=== PATIENT | male | born 1965 | race Caucasian/White ===

== ENCOUNTER 2018-07-25 06:44 | Inpatient (IN) ==
[2018-07-25] MEDS ORDERED: Dexamethasone 4 MG/ML VIAL ONE (07:01)
[2018-07-25] MEDS ORDERED: Lidocaine -MPF 4% 5 ML AMPUL ONE (07:01)
[2018-07-25] MEDS ORDERED: *HR* Midazolam HCl 2 MG/2 ML VIAL ONE (07:01)
[2018-07-25] MEDS ORDERED: *HR* FentaNYL (PF) 100 MCG/2 ML VIAL ONE (07:01)
[2018-07-25] MEDS ORDERED: *HR* Succinylcholine 200 MG/10 ML VIAL IVP ONE (07:01)
[2018-07-25] MEDS ORDERED: *HR* Propofol 200 MG/20 ML VIAL IVP ONE (07:01)
[2018-07-25] MEDS ORDERED: Lidocaine -MPF 2% 2 ML VIAL ONE (07:01)
[2018-07-25] MEDS ORDERED: Ondansetron 4 MG/2 ML VIAL ONE (07:01)
[2018-07-25] MEDS ORDERED: Famotidine 20 MG/2 ML VIAL IVP ONE (07:12)
[2018-07-25] MEDS ORDERED: KETAMINE HCL 50 MG/ML SYRINGE IV ONE (07:12)
[2018-07-25] MEDS ORDERED: Pregabalin 75 MG CAPSULE PO ONE (07:12)
[2018-07-25] MEDS ORDERED: *HR* Methadone 10 MG TABLET PO ONE (07:13)
[2018-07-25] MEDS ORDERED: Acetaminophen IV 1,000 MG/100 ML INFUS..BTL IVPB ONE (07:13)
[2018-07-25] MEDS ORDERED: Ringers Solution, Lactated 1,000 ML IVC SCH ×3 (07:15→14:45)
--- NOTE | 2018-07-25 07:16 | Anesthesia Evaluation PreOp ---
Date of Encounter: 07/25/18 Time of Encounter: 07:10 - Past History Planned Operation: PLIF L5-S1 Cardiac History: HTN Pulmonary History: Smoker INFORMATION ARCHITECT History: CVA (Hemorrhagic Stroke Embolization at [facility], residual deficit), Other (Previous Cervical Fracture) Other Medical History: Denies Any Significant HX Anesthesia History: No Prior Anesthetic Complications Alcohol Use: occasionally Drug use: none Medications and Allergies Cyclobenzaprine [Flexeril] 10 mg PO 05/15/17 [History] Escitalopram [Lexapro] 10 mg PO DAILY 05/15/17 [History] Gabapentin [Neurontin] 600 mg PO 05/15/17 [History] HYDROcodone/Acet 7.5/325 mg [[place] 7.5-325 mg] 1 tab PO 05/15/17 [History] Lisinopril [Zestril] 10 mg PO DAILY 05/15/17 [History] SUMAtriptan succinate [Imitrex] 50 mg PO 05/15/17 [History] Allergy/AdvReac Type Severity Reaction Status Date / Time No Known Allergies Allergy Unverified 10/06/16 12:09 - Meds/Allergy Pre-op Review Medications Reviewed: Yes Allergies Reviewed: Yes Beta Blockers on Current Med List: No Anesthesia Results - Labs Laboratory Tests 07/03/18 07/03/18 07/03/18 15:40 15:40 15:40 Hgb 14.4 Hct 43.9 Plt Count 261 PT 9.8 INR 0.9 APTT 28.2 Sodium 139 Potassium 3.9 BUN 8 Creatinine 0.76 - Imaging EKG: report reviewed (SR) Additional studies: ECHO 2016 EF 55%, Stress Test Negative Anesthesia Exam O2 Sat Height 1.7 m Height 1.7 m Weight 75.75 kg Weight 75.75 kg O2 Sat by Pulse Oximetry 95 Vital Signs Temp Pulse Resp BP Pulse Ox 98.5 F 93 18 136/91 95 07/25/18 07:13 07/25/18 07:13 07/25/18 07:13 07/25/18 07:13 07/25/18 07:13 Height: 5'7 Weight: 167 lbs NPO (# of Hours): MN Pain Scale: 0 - HEENT Pupil (Motor): Pupils equal, EOMI Mallampati: III Teeth: Normal Oral Opening: Less than or equal to 3 (limited neck extension) - INFORMATION ARCHITECT LOC: Oriented INFORMATION ARCHITECT Motor: Normal RUE, Normal LUE, Normal RLE, Normal LLE, Normal Face INFORMATION ARCHITECT Sensory: Normal: RUE, LUE, RLE, LLE, Face - Cardiac Rhythm: Regular Murmur: None JVD: No Carotid Bruit: No - Pulmonary Breath Sounds: bilateral Clear Respiratory Effort: Symmetrical Anesthesia Assess/Plan ASA Score: 2 Level of consciousness: Cooperative, Oriented Anesthetic Plan: General Reason for No Neuroaxial/Regional Block: Other (not indicated) Autologous Blood: No Monitoring Plan: Standard Monitors Recovery Plan: PACU (Discussed GA, agrees to proceed)
[2018-07-25] MEDS ORDERED: Albuterol 2.5 MG/3 ML NEBULIZER IH ONE (07:33)
[2018-07-25] MEDS ORDERED: CeFAZolin Syr 2,000MG/20 ML 2,000 MG/20 ML SYRINGE IVPB ONE (07:33)
[2018-07-25] MEDS ORDERED: *HR* Norepinephrine 4 MG/4 ML VIAL IVC ONE (07:37)
[2018-07-25] MEDS ORDERED: *HR* HYDROMORPHONE 2 MG/ML VIAL ONE (07:42)
--- NOTE | 2018-07-25 07:42 | History & Physical Report ---
Date of Encounter: 07/25/18 Time of Encounter: 07:35 24 Hour HP Update - Instructions Instructions: If the History and Physical is less than 30 days old and was completed prior to A.M. admission and or procedure and has NOT been updated on calendar day of procedure please complete this update prior to performing procedure. - Update Patient reports changes in Medical Condition: No Changes in examination, assessment, or condition: No Changes in Medication: No Preop tests/diagnostics Reviewed: Yes Pre-Op MRSA Screen: Negative Surgery Remains Indicated: Yes Consent for Planned Operative Procedure(s) Verified: Yes - Pre-Operative Checklist Preoperative Checklist Indicated: No Prophylactic Antibiotic Ordered: Yes Home Medications Include Beta Imer: No Beta Imer Taken Today (Day of Surgery): No Beta Imer Taken Yesterday (Day Prior to Surgery): No Is VTE Prophylaxis Indicated?: Yes
[2018-07-25] MEDS ORDERED: Bacitracin 50,000 UNIT, Polymyxin B Sulfate 500,000 UNIT, Sodium Chloride IRRigation 1,... IR ONE (08:00)
[2018-07-25] MEDS ORDERED: *HR* Magnesium Sulfate 1 GM/2 ML VIAL ONE (08:18)
[2018-07-25] MEDS ORDERED: *HR* Rocuronium Bromide 50 MG/5 ML VIAL ONE (08:59)
[2018-07-25] MEDS ORDERED: *HR* PHENYLEPHRINE 1,000 MCG/10 ML SYRINGE IVP ONE (09:05)
[2018-07-25] MEDS ORDERED: Neostigmine Methylsulfate 3 MG/3 ML SYRINGE ONE (09:59)
[2018-07-25] MEDS ORDERED: Ondansetron 4 MG/2 ML VIAL IVP ONE (10:40)
[2018-07-25] MEDS ORDERED: *HR* Labetalol 20 MG/4 ML SYRINGE IVP PRN (10:40)
[2018-07-25] MEDS ORDERED: *HR* Promethazine 25 MG/ML VIAL IVP PRN (10:40)
--- NOTE | 2018-07-25 10:45 | Orthopedic Operative Note ---
Date of procedure: 07/25/18 Pre-op diagnosis: Spondylolisthesis, lumbar stenosis, lumbar radiculopathy Post-op diagnosis: same Operation/Findings: Posterior lumbar interbody fusion L5-S1: The patient successfully underwent general endotracheal anesthesia. The patient was given antibiotics prior to the start of the procedure. Compression boots and stockings were used for deep vein thrombosis prophylaxis. A Arzola catheter was placed. Leads for neuro monitoring were placed on the upper and lower extremities. This included the cranium. The neuro monitoring personnel confirmed there were satisfactory readings prior to the start of the procedure. The patient was turned prone on the Bro table. The back was prepped and draped in the usual sterile fashion. An incision was was marked and centered over the involved L5-S1 levels in the mid line. The incision was deepened through the lumbar fascia. Bovie cautery and Art elevators were used to reflect the paraspinal musculature at the lateral extent of the transverse processes of the involved L5 and S1 levels. Emy clamps were placed over the spinous L5 and S1 processes. An intraoperative lateral fluoroscopy graft was obtained. A conversation was held between the surgeon and radiologist and both confirmed we had the correct operative levels. We then placed pedicle screws in standard fashion with the aid of fluoroscopy and anatomic landmarks. Briefly a starter awl was used. A gearshift was subsequently used to enter the ship pilot hole via a transpedicular route into the vertebral body. The ship pilot hole was tapped with an undersized instrument, and subsequently four 6.5 x 50 mm pedicle screws were placed bilaterally at the indicated L5 and S1 levels. The screws were tested with the aid of the neurologic monitoring staff via pedicle screw stimulation. All reading suggested there was no significant cortical wall breech. The screws were also evaluated fluoro- graphically and appeared to be in satisfactory position. We then turned our attention to the decompression portion of the procedure. We removed the supraspinous and interspinous ligaments and subsequently the insertion of the ligamentum flavum on the undersurface of the proximal L5 lamina was dislodged with a curette. We then removed the ligamentum flavum as well as undercut the L5-S1 facets at this level to decompress the lateral recesses. We also performed a L5 laminectomy. After the decompression, which was over and above that which was required to place the interbody graft, the foramen and traversing roots at this L5-S1 level were found to be free and patent. We also took part of the medial facets at L5-S1 in order to aid in the decompression. We then protected the neural elements including the thecal sac and traversing nerve root on the right with a dural retractor. We made an annulotomy into the L5-S1 disc space and then removed entire disc material using Pituitary instruments. We trialed various size grafts after the endplates were prepared for graft insertion. An 8 x 26 enter body graft fit well within the L5-S1 disc space. We obtained some bone from the right posterior superior iliac spine through us a separate incision and combined with this with the bone which we had saved from the laminectomy portion of the procedure. This autograft bone was first placed in the anterior portion of the L5-S1 disc space and additional bone was placed within the interbody graft spacer. We then placed the interbody graft spacer obliquely across the L5-S1 disc space towards the midline while protecting the neural elements with a root retractor. When the graft was found to be in satisfactory position the paper inserter was removed. We then copiously irrigated the wound. We then decorticated the L5 transverse processes as well as the L5-S1 facet joints and proximal portion of the sacrum of the involved levels to aid in the posterolateral fusion. We placed autograft bone in the lateral gutters over these regions. We then placed rods within the screw heads of the involved L5-S1 levels and first locked the distal screws and then subsequently locked the proximal screws so as to improve and reduce the spondylolisthesis previously seen. We then closed the wound in layers with 1 Vicryl for the fascia, 2-0 Vicryl. Subcutaneous tissue, and Dermabond was used for skin closure. Sterile dressings were placed over the wound. The patient was turned supine on a hospital bed and extubated. All sponge instruments and needle counts were correct at the end of the procedure. The patient tolerated the procedure well without complications. Anesthesia: GETA Surgeon: Alexander Macedo Jr Was there an help desk assistant present: No Estimated blood loss (cc): 100 Specimen: None Condition: stable Disposition: PACU
[2018-07-25] MEDS: *HR* HYDROmorphone (PF) 1 MG/ML SYRINGE IVP PRN ×2 (11:24→11:30)
[2018-07-25] MEDS ORDERED: Ondansetron 4 MG/2 ML VIAL IVP PRN (14:34)
[2018-07-25] MEDS ORDERED: Naloxone 0.4 MG/ML INJ IVP PRN (14:34)
[2018-07-25] MEDS ORDERED: Acetaminophen 325 MG TABLET PO PRN (14:34)
[2018-07-25] MEDS: *HR* OxyCODONE Immed Rel 5 MG TABLET PO PRN ×2 (15:32→20:38)
[2018-07-26] MEDS: *HR* OxyCODONE Immed Rel 5 MG TABLET PO PRN ×4 (04:46→23:44)
[2018-07-26] MEDS: *HR* HYDROcodone/Acet 5/325 mg TABLET PO PRN ×2 (08:19→15:25)
--- NOTE | 2018-07-26 13:04 | Orthopedics Progress Note ---
Date of Encounter: 07/26/18 Time of Encounter: 13:03 - Assessment and Plan (1) Spondylolisthesis Current Visit: Yes Status: Chronic Qualifiers: Spinal region: unspecified Qualified Code(s): M43.10 - Spondylolisthesis, site unspecified (2) Lumbar spinal stenosis Current Visit: Yes Status: Chronic Qualifiers: Neurogenic claudication status: unspecified Qualified Code(s): M48.061 - Spinal stenosis, lumbar region without neurogenic claudication (3) Lumbar radiculopathy Current Visit: Yes Status: Chronic (4) Status post lumbar spinal fusion Current Visit: Yes Status: Acute Subjective Principal diagnosis: s/p PLIF Interval history: Date of procedure: 07/25/18 Pre-op diagnosis: Spondylolisthesis, lumbar stenosis, lumbar radiculopathy Post-op diagnosis: same Operation/Findings: Posterior lumbar interbody fusion L5-S1 patient seen by Dr. Macedo Vital Signs Temp Pulse Resp BP Pulse Ox 07/26/18 11:45 98.0 F 78 15 102/66 98 07/26/18 06:45 98.3 F 86 15 106/68 96 07/26/18 04:50 97.7 F 79 16 136/81 97 07/25/18 23:38 98.4 F 112 17 111/70 95 07/25/18 20:42 98.2 F 106 16 129/86 96 07/25/18 20:20 96 07/25/18 20:14 98.0 F 109 18 126/82 96 07/25/18 16:43 97.9 F 104 17 113/71 94 07/25/18 13:46 106 18 92 07/25/18 13:32 105 16 114/76 92 Intake and Output 07/25/18 07/26/18 07/26/18 23:59 07:59 15:59 Intake Total 220 / 220 1100 / 1100 200 / 200 Output Total 1400 / 1400 1600 / 1600 Balance -1180 / -1180 -500 / -500 200 / 200 Intake: IV Fluids 100 / 100 100 / 100 Ancef 2,000 MG In 0.9 % Sodium 100 / 100 100 / 100 Chloride 100 ML @ 200 mls/hr IVPB Q8HR [facility] Rx#:[id number] Oral 120 / 120 1000 / 1000 200 / 200 Output: Catheter 1400 / 1400 1600 / 1600 Other: Meal Lunch Breakfast Percent of Meal Consumed 100% 50% # Voids 1 Objective Vital signs: Vital Signs Temp Pulse Resp BP Pulse Ox 07/26/18 11:45 98.0 F 78 15 102/66 98 07/26/18 06:45 98.3 F 86 15 106/68 96 07/26/18 04:50 97.7 F 79 16 136/81 97 07/25/18 23:38 98.4 F 112 17 111/70 95 07/25/18 20:42 98.2 F 106 16 129/86 96 07/25/18 20:20 96 07/25/18 20:14 98.0 F 109 18 126/82 96 07/25/18 16:43 97.9 F 104 17 113/71 94 07/25/18 13:46 106 18 92 07/25/18 13:32 105 16 114/76 92 Intake and Output 07/25/18 07/26/18 07/26/18 23:59 07:59 15:59 Intake Total 220 / 220 1100 / 1100 200 / 200 Output Total 1400 / 1400 1600 / 1600 Balance -1180 / -1180 -500 / -500 200 / 200 Intake: IV Fluids 100 / 100 100 / 100 Ancef 2,000 MG In 0.9 % Sodium 100 / 100 100 / 100 Chloride 100 ML @ 200 mls/hr IVPB Q8HR [facility] Rx#:[id number] Oral 120 / 120 1000 / 1000 200 / 200 Output: Catheter 1400 / 1400 1600 / 1600 Other: Meal Lunch Breakfast Percent of Meal Consumed 100% 50% # Voids 1 - Labs CBC & BMP: 07/26/18 15:15 07/26/18 15:15 - VTE Documentation of Mechanical Device: Graduated compression elastic hosiery Consult Discharge Plan - Plan Referrals: Montse Garcia, LATEXER [Primary Care Provider] -
[2018-07-26 15:28] LABS: Basophils # 0.1 K/mcL (0.0-0.2); Basophils % 0.2 %; Hematocrit 41.8 % (37.5-50.1); Hemoglobin 13.5 g/dL (12.9-16.9); Immature Granulocytes % 0.6 % (0-4); Lymphocytes # 1.7 K/mcL (0.6-4.6); Lymphocytes % 7.1 %; Mean Corpuscular HGB Conc 32.3 g/dL (31.6-35.5); Mean Corpuscular Hemoglobin 31.2 pg (28.0-33.3); Mean Corpuscular Volume 96.5 fL (83.0-100.0); Mean Platelet Volume 10.3 fL (9.4-12.4); Monocytes # 2.4 K/mcL (0.0-1.3); Monocytes % 10.1 %; Neutrophils # 19.3 K/mcL (1.6-8.9); Platelet Count 251 K/mcL (140-400); Red Blood Count 4.33 M/mcL (4.19-5.50); Red Cell Distribution Width 13.3 % (11.5-14.5)
[2018-07-26 15:46] LABS: Alanine Aminotransferase 72 Units/L (7-52); Albumin/Globulin Ratio 1.5 (1.1-2.2); Alkaline Phosphatase 78 Units/L (34-104); Aspartate Amino Transferase 67 Units/L (13-39); BUN/Creatinine Ratio 9 (6-26); Bilirubin,Total 0.3 mg/dL (0.3-1.0); Blood Urea Nitrogen 7 mg/dL (6-20); Calcium 9.1 mg/dL (8.6-10.3); Carbon Dioxide 30 mEq/L (23-29); Chloride 103 mEq/L (98-107); Globulin 2.6 g/dL (2.4-3.5); Glucose 102 mg/dL (70-105); Osmolality,Calculated 282 (280-300); Potassium 4.1 mEq/L (3.5-5.1); Sodium 137 mEq/L (136-145); Total Protein 6.6 g/dL (6.4-8.9); eGFR For Non-African Americans > 60 (> 60)
[2018-07-27] MEDS: *HR* OxyCODONE Immed Rel 5 MG TABLET PO PRN ×3 (05:15→14:32)
[2018-07-27 09:43] LABS: Basophils # 0.1 K/mcL (0.0-0.2); Basophils % 0.5 %; Eosinophils # 0.1 K/mcL (0.0-0.6); Eosinophils % 0.7 %; Hemoglobin 12.7 g/dL (12.9-16.9); Immature Granulocytes % 0.3 % (0-4); Lymphocytes # 1.9 K/mcL (0.6-4.6); Lymphocytes % 15.3 %; Mean Corpuscular HGB Conc 32.6 g/dL (31.6-35.5); Mean Corpuscular Hemoglobin 31.1 pg (28.0-33.3); Mean Corpuscular Volume 95.6 fL (83.0-100.0); Monocytes # 1.8 K/mcL (0.0-1.3); Monocytes % 14.2 %; Neutrophils # 8.7 K/mcL (1.6-8.9); Platelet Count 215 K/mcL (140-400); Red Blood Count 4.08 M/mcL (4.19-5.50); Red Cell Distribution Width 13.4 % (11.5-14.5)
[2018-07-27 10:02] LABS: BUN/Creatinine Ratio 6 (6-26); Blood Urea Nitrogen 4 mg/dL (6-20); Calcium 8.8 mg/dL (8.6-10.3); Carbon Dioxide 29 mEq/L (23-29); Chloride 102 mEq/L (98-107); Glucose 127 mg/dL (70-105); Osmolality,Calculated 280 (280-300); Potassium 3.7 mEq/L (3.5-5.1); Sodium 136 mEq/L (136-145); eGFR For Non-African Americans > 60 (> 60)
[2018-07-27] MEDS: *HR* HYDROcodone/Acet 5/325 mg TABLET PO PRN (11:44)
[2018-07-28] MEDS: *HR* HYDROcodone/Acet 5/325 mg TABLET PO PRN (00:56)
[2018-07-28] MEDS: *HR* OxyCODONE Immed Rel 5 MG TABLET PO PRN ×2 (05:48→14:04)
[2018-07-28 10:50] VITALS: BP 122/77
[2018-07-28 12:22] LABS: Basophils # 0.1 K/mcL (0.0-0.2); Basophils % 0.6 %; Eosinophils # 0.2 K/mcL (0.0-0.6); Eosinophils % 2.2 %; Hematocrit 38.5 % (37.5-50.1); Hemoglobin 12.8 g/dL (12.9-16.9); Immature Granulocytes % 0.4 % (0-4); Lymphocytes # 1.8 K/mcL (0.6-4.6); Lymphocytes % 18.1 %; Mean Corpuscular HGB Conc 33.2 g/dL (31.6-35.5); Mean Corpuscular Hemoglobin 31.6 pg (28.0-33.3); Mean Corpuscular Volume 95.1 fL (83.0-100.0); Mean Platelet Volume 10.4 fL (9.4-12.4); Monocytes # 1.6 K/mcL (0.0-1.3); Monocytes % 15.5 %; Neutrophils # 6.3 K/mcL (1.6-8.9); Platelet Count 205 K/mcL (140-400); Red Blood Count 4.05 M/mcL (4.19-5.50); Red Cell Distribution Width 13.1 % (11.5-14.5); Segmented Neutrophils % 63.2 %
[2018-07-28 12:45] LABS: BUN/Creatinine Ratio 7 (6-26); Blood Urea Nitrogen 5 mg/dL (6-20); Calcium 9.1 mg/dL (8.6-10.3); Carbon Dioxide 26 mEq/L (23-29); Chloride 102 mEq/L (98-107); Glucose 120 mg/dL (70-105); Osmolality,Calculated 276 (280-300); Potassium 3.8 mEq/L (3.5-5.1); Sodium 134 mEq/L (136-145); eGFR For Non-African Americans > 60 (> 60)
--- NOTE | 2018-07-28 14:06 | Orthopedics Progress Note ---
Date of Encounter: 07/27/18 Time of Encounter: 09:00 - Assessment and Plan (1) Spondylolisthesis Current Visit: Yes Status: Chronic Qualifiers: Spinal region: unspecified Qualified Code(s): M43.10 - Spondylolisthesis, site unspecified (2) Lumbar spinal stenosis Current Visit: Yes Status: Chronic Qualifiers: Neurogenic claudication status: unspecified Qualified Code(s): M48.061 - Spinal stenosis, lumbar region without neurogenic claudication (3) Lumbar radiculopathy Current Visit: Yes Status: Chronic (4) Status post lumbar spinal fusion Current Visit: Yes Status: Acute Subjective Principal diagnosis: s/p PLIF Interval history: Date of procedure: 07/25/18 Pre-op diagnosis: Spondylolisthesis, lumbar stenosis, lumbar radiculopathy Post-op diagnosis: same Operation/Findings: Posterior lumbar interbody fusion L5-S1 The patient is without complaints. Afebrile vital signs are stable. Dressing is clean dry and intact. Neurovascularly intact with regard to bilateral lower extremities. Fires all upper and lower extremity motor groups. Assessment :stable. Plan mobilize ,continue analgesics, discharge planning. Patient with elevated white count - will repeat to ensure down trending Objective Vital signs: Vital Signs Temp Pulse Resp BP Pulse Ox 07/28/18 10:49 99.0 F 86 14 122/77 95 07/28/18 07:20 100.6 F H 106 14 108/73 95 07/28/18 03:46 99.6 F 114 14 102/69 93 07/27/18 23:17 99.3 F 106 16 112/79 97 07/27/18 19:30 99.3 F 105 16 131/90 98 07/27/18 16:34 98.3 F 129 16 129/76 99 Intake and Output 07/27/18 07/28/18 07/28/18 23:59 07:59 15:59 Intake Total 240 / 240 Output Total 800 / 800 150 / 150 Balance -800 / -800 90 / 90 Intake: Oral 240 / 240 Output: Urine 800 / 800 150 / 150 Other: Meal Lunch Percent of Meal Consumed 80% 70% # Voids 1 Weight 79.6 kg Patient Weight 07/28/18 23:59 Weight 79.6 kg - Labs CBC & BMP: 07/28/18 12:12 07/28/18 12:12 Labs: Abnormal lab results RBC 4.05 M/mcL (4.19-5.50) L 07/28/18 12:12 Hgb 12.8 g/dL (12.9-16.9) L 07/28/18 12:12 Monocytes # 1.6 K/mcL (0.0-1.3) H 07/28/18 12:12 Sodium 134 mEq/L (136-145) L 07/28/18 12:12 BUN 5 mg/dL (6-20) L 07/28/18 12:12 Glucose 120 mg/dL (70-105) H 07/28/18 12:12 Calculated Osmolality 276 (280-300) L 07/28/18 12:12 AST 67 Units/L (13-39) H 07/26/18 15:15 ALT 72 Units/L (7-52) H 07/26/18 15:15 - VTE Documentation of Mechanical Device: Graduated compression elastic hosiery Consult Discharge Plan - Plan Additional Instructions: Discharge Instructions: Lumbar Please call [facility] ([phone]), your Primary Care Physician, or report to the ER if you have any of the following symptoms: Fever greater that 101.5, increased pain/redness/drainage/odor for your incision site or any other concerning symptoms. ACTIVITY * May Shower * No Tub Baths * No lifting greater than 10 pounds * No Smoking * No Swimming * No off Ground Activities (Running, Climbing, Ladders, Horseback Riding) * No Driving * Wear Back Brace when up walking if lumbar fusion done * Incentive Spirometer 10 times an hour MEDICATIONS: Upon discharge resume your home medications. Take all the medications as prescribed. Take a stool softener if taking narcotic pain medications. Stool softeners are only effective if you drink enough fluids. Drink 6-8 glass of water or fluids a day, unless this is not allowed for another health problem. Despite using stool softeners, if you haven't had a bowel movement in 3 days, please switch to a gentle laxative. Gentle laxatives are sold over the counter. You should have a bowel movement within 24 hours, if not call the office. You will be discharged from the hospital with a prescription for pain medication. You are encouraged to decrease the use of narcotic pain medication as tolerated. Should you require a refill, please call the office. It is best to call 48-72 hours in advance of needing a prescription refill so you don't run out of medication. WOUND CARE: Remove Dressing Tomorrow. Leave incision open to air. Pat dry when you get out of the shower. FOLLOW-UP: Please follow up with your surgeon in the orthopedic clinic in 2 weeks from the day of surgery. References: [employer] ([email or web address]) Referrals: Montse Garcia, VAN OWNER OPERATOR [Primary Care Provider] - Prescriptions: Docusate Sodium [Colace] 100 mg PO BID 5 Days #10 capsule OxyCODONE Immed Rel [Roxicodone 5 MG] 5 mg PO TID PRN 7 Days #28 tablet PRN Reason: Breakthrough Pain
--- NOTE | 2018-07-28 14:09 | Discharge Summary ---
Orders not resulted at time of discharge: Pending orders 07/25/18 XR fluoroscopy <1 hr [XR] Routine Date of Encounter: 07/28/18 Time of Encounter: 12:00 - Discharge Diagnosis (1) Spondylolisthesis Priority: Primary Status: Chronic Qualifiers: Spinal region: unspecified Qualified Code(s): M43.10 - Spondylolisthesis, site unspecified (2) Lumbar spinal stenosis Priority: Primary Status: Chronic Qualifiers: Neurogenic claudication status: unspecified Qualified Code(s): M48.061 - Spinal stenosis, lumbar region without neurogenic claudication (3) Lumbar radiculopathy Priority: Primary Status: Chronic (4) Status post lumbar spinal fusion Priority: Primary Status: Acute - Hospital Course Hospital course: Mr. Carballo is a 52 year old male Date of procedure: 07/25/18 Pre-op diagnosis: Spondylolisthesis, lumbar stenosis, lumbar radiculopathy Post-op diagnosis: same Operation/Findings: Posterior lumbar interbody fusion L5-S1 The patient had an uneventful postoperative course. Progressed from intravenous analgesic needs to oral analgesic needs only. Remained neurovascularly intact and mobilized satisfactorily. All intraoperative and/or postoperative radiographic studies were satisfactory. Patient is discharged with plan for rehabilitation and follow-up in 2 weeks post discharge on analgesic medication and patient's home medications. Patient non compliant with incentive spirometer. Temp and O2 saturation improved when patient using. Educated extensively on importance of this device even when he returns home as well as warning signs warranting further evaluation. patient and spouse verbalize understanding. Vitals repeating prior to discharge. Short CBC 07/28/18 Range/Units 12:12 WBC 10.0 (4.3-11.1) K/mcL Hgb 12.8 L (12.9-16.9) g/dL Hct 38.5 (37.5-50.1) % Plt Count 205 (140-400) K/mcL Neutrophils # 6.3 (1.6-8.9) K/mcL BMP 07/28/18 Range/Units 12:12 Sodium 134 L (136-145) mEq/L Potassium 3.8 (3.5-5.1) mEq/L Chloride 102 (98-107) mEq/L Carbon Dioxide 26 (23-29) mEq/L BUN 5 L (6-20) mg/dL Creatinine 0.75 (0.70-1.30) mg/dL Glucose 120 H (70-105) mg/dL Calcium 9.1 (8.6-10.3) mg/dL Vital Signs Temp Pulse Resp BP Pulse Ox 07/28/18 10:49 99.0 F 86 14 122/77 95 07/28/18 07:20 100.6 F H 106 14 108/73 95 07/28/18 03:46 99.6 F 114 14 102/69 93 07/27/18 23:17 99.3 F 106 16 112/79 97 07/27/18 19:30 99.3 F 105 16 131/90 98 07/27/18 16:34 98.3 F 129 16 129/76 99 Intake and Output 07/27/18 07/28/18 07/28/18 23:59 07:59 15:59 Intake Total 240 / 240 Output Total 800 / 800 150 / 150 Balance -800 / -800 90 / 90 Intake: Oral 240 / 240 Output: Urine 800 / 800 150 / 150 Other: Meal Lunch Percent of Meal Consumed 80% 70% # Voids 1 Weight 79.6 kg Patient Weight 07/28/18 23:59 Weight 79.6 kg Time spent discussing smoking cessation with patient: 3 to 10 minutes - Time Spent with Patient Total time spent providing and/or coordinating discharge services: - Discharge Medications Prescriptions: Docusate Sodium [Colace] 100 mg PO BID 5 Days #10 capsule OxyCODONE Immed Rel [Roxicodone 5 MG] 5 mg PO TID PRN 7 Days #28 tablet PRN Reason: Breakthrough Pain Home Medications: Buspirone HCl [Buspar] 5 mg PO TID 07/25/18 [History] Cetirizine HCl [All Day Allergy] 10 mg PO DAILY PRN 07/25/18 [History] Cyclobenzaprine [Flexeril] 10 mg PO TID 07/25/18 [History] Fluticasone Propionate Nasal [Flonase] 1 spr NS DAILY PRN 07/25/18 [History] Furosemide [Lasix] 20 mg PO DAILY 07/25/18 [History] Gabapentin [Neurontin] 800 mg PO QID 07/25/18 [History] OxyCODONE/APAP 5/325 [Percocet 5/325 MG] 1 tab PO Q8HR PRN 07/25/18 [History] Potassium Chloride 20 mg PO DAILY PRN 07/25/18 [History] Docusate Sodium [Colace] 100 mg PO BID 5 Days #10 capsule 07/28/18 [Rx] OxyCODONE Immed Rel [Roxicodone 5 MG] 5 mg PO TID PRN 7 Days #28 tablet 07/28/18 [Rx] Allergies/Adverse Reactions: Allergy/AdvReac Type Severity Reaction Status Date / Time No Known Allergies Allergy Verified 07/25/18 07:29 Date of admission: 07/25/18 12:26 Primary care physician: Montse Garcia CNP Consults: 07/25/18 14:34 Consult to Occupational Therapy [CONS] Routine Comment: Evaluate, develop and implement POC Reason for Consult: Postoperative rehabilitation Does patient have active BEDREST order?: No Is patient medically & hemodynamically stable?: Yes Patient assessed for mobility or mobilized this visit?: No Consult to Physical Therapy [CONS] Routine Comment: Evaluate, develop and implement POC Reason for Consult: Postoperative rehabilitation Does patient have active BEDREST order?: No Is patient medically & hemodynamically stable?: Yes Patient assessed for mobility or mobilized this visit?: No Consult to Spine Navigator [CONS] [CONS] Routine Discharging clinician: Alexander Macedo Jr Anticipated date of discharge: 07/28/18 - VTE Documentation of Mechanical Device: Graduated compression elastic hosiery Labs on day of discharge: Labs from last 24 hours 07/28/18 07/28/18 12:12 12:12 WBC 10.0 RBC 4.05 L Hgb 12.8 L Hct 38.5 MCV 95.1 MCH 31.6 MCHC 33.2 RDW 13.1 Plt Count 205 MPV 10.4 Immature Gran % 0.4 Seg Neutrophils % 63.2 Lymphocytes % 18.1 Monocytes % 15.5 Eosinophils % 2.2 Basophils % 0.6 Neutrophils # 6.3 Lymphocytes # 1.8 Monocytes # 1.6 H Eosinophils # 0.2 Basophils # 0.1 Sodium 134 L Potassium 3.8 Chloride 102 Carbon Dioxide 26 BUN 5 L Creatinine 0.75 Est GFR ( Amer) > 60 Est GFR (Non-Af Amer) > 60 BUN/Creatinine Ratio 7 Glucose 120 H Calculated Osmolality 276 L Calcium 9.1 - Impressions ITS Impressions Lumbar Spine X-Ray 07/25/18 00:00 IMPRESSION: Stabilized alignment, internal fixation L4-5 interspace as described since the prior CT. No acute abnormality. D/ / Jadiel Phillips MD / Jadiel Phillips MD Interpreting Provider: Jadiel Phillips MD Lumbar Spine X-Ray 07/28/18 08:10 IMPRESSION: Stable appearance status post L4-L5 posterior fusion. D/ / 07/28/2018 13:43:25 Jai Nicole MD / earashley Interpreting Provider: Jai Nicole MD - Patient Status Disposition: Home, Self-Care Condition: Fair Functional capacity at discharge: uses cane/walker Overall status at discharge: patient is progressing back to baseline - Discharge Instructions Follow Up With: Montse Garcia ADMINISTRATIVE SERVICES MANAGER [Primary Care Provider] - Additional Instructions: Discharge Instructions: Lumbar Please call [facility] ([phone]), your Primary Care Physician, or report to the ER if you have any of the following symptoms: Fever greater that 101.5, increased pain/redness/drainage/odor for your incision site or any other concerning symptoms. ACTIVITY * May Shower * No Tub Baths * No lifting greater than 10 pounds * No Smoking * No Swimming * No off Ground Activities (Running, Climbing, Ladders, Horseback Riding) * No Driving * Wear Back Brace when up walking if lumbar fusion done * Incentive Spirometer 10 times an hour MEDICATIONS: Upon discharge resume your home medications. Take all the med ications as prescribed. Take a stool softener if taking narcotic pain medications. Stool softeners are only effective if you drink enough fluids. Drink 6-8 glass of water or fluids a day, unless this is not allowed for another health problem. Despite using stool softeners, if you haven't had a bowel movement in 3 days, please switch to a gentle laxative. Gentle laxatives are sold over the counter. You should have a bowel movement within 24 hours, if not call the office. You will be discharged from the hospital with a prescription for pain medication. You are encouraged to decrease the use of narcotic pain medication as tolerated. Should you require a refill, please call the office. It is best to call 48-72 hours in advance of needing a prescription refill so you don't run out of medication. WOUND CARE: Remove Dressing Tomorrow. Leave incision open to air. Pat dry when you get out of the shower. FOLLOW-UP: Please follow up with your surgeon in the orthopedic clinic in 2 weeks from the day of surgery. References: [employer] [place] [employer] ([email or web address]) - Diet and Activity Activity: as per physical therapy Diet: advance to your usual diet
== END 2018-07-28 17:01 | disposition home or self-care (01) | DRG 304 ==
LOC: SAMDAY 06:44 → 2ANU 12:26 → 3NENU 20:31
PROVIDERS: ADMIT Orthopaedic Surgery Orthopaedic Surgery of the Spine; ATTEND Orthopaedic Surgery Orthopaedic Surgery of the Spine